=== PATIENT | male | born 1975 | race Caucasian/White ===

== ENCOUNTER 2019-04-07 13:47 | Emergency (ER) | payer SELFPAY ==
[2019-04-07] MEDS ORDERED: Ondansetron 4 MG/2 ML SDV IVPUSH ONE (13:54)
[2019-04-07] MEDS ORDERED: Morphine 4 MG/ML Syringe IVPUSH ONE (13:54)
[2019-04-07] MEDS ORDERED: methylPREDNISolone Sodium Succinate 125 MG/2 ML SDV IVPUSH ONE (13:54)
--- NOTE | 2019-04-07 13:54 | EDM.PDOC ---
ED HPI GENERAL MEDICAL PROBLEM - General Chief Complaint: Back Pain or Injury Stated Complaint: BACK PAIN Time Seen by Provider: 04/07/19 13:48 Source of Information: Reports: Patient History Limitations: Reports: No Limitations - History of Present Illness INITIAL COMMENTS - FREE TEXT/NARRATIVE: HISTORY AND PHYSICAL: History of present illness: Patient is a 43-year-old male who presents to the emergency room by EMS from work with complaints of severe low back pain. He states around noon he had bent over and had sharp sudden onset of pain which has gradually gotten worse. He had been ambulating and bearing weight without any difficulty, deficits, or weakness. He states he called EMS as he is "afraid to move" as it hurts so bad. States pain is localized across the low lumbar region bilaterally (across low back), does not radiate. He denies any injury, trauma or falls. He states he is ambulatory and able to weight-bear although is fearful to move. Denies any urinary or fecal incontinence. Denies any numbness, tingling or saddle paresthesias. Patient denies any fever, chills, headache, change in vision, syncope or near syncope. Denies any chest pain, neck pain, shortness of breath or cough. Denies any abdominal pain, nausea, vomiting, diarrhea, constipation or dysuria. Has not noted any blood in urine or stool. Patient has been eating and drinking appropriately. Review of systems: As per history of present illness and below otherwise all systems reviewed and negative. Past medical history: As per history of present illness and as reviewed below otherwise noncontributory. Surgical history: As per history of present illness and as reviewed below otherwise noncontributory. Social history: See social history for further information Family history: As per history of present illness and as reviewed below otherwise noncontributory. Physical exam: General: Well developed and well nourished 43-year-old male. Alert and oriented. Anxious demeanor, but nontoxic appearing and in no acute distress. HEENT: Atraumatic, normocephalic, pupils equal and reactive bilaterally, negative for conjunctival pallor or scleral icterus, mucous membranes moist, trachea midline. No drooling or trismus noted. No meningeal signs. No hot potato voice noted. Lungs: Clear to auscultation, breath sounds equal bilaterally, chest nontender. Heart: S1S2, regular rate and rhythm without overt murmur Abdomen: Soft, nondistended, nontender. Negative for masses or hepatosplenomegaly. Negative for costovertebral tenderness. Pelvis: Stable nontender. Rectal: Refused regardless of education. C-spine/Back: No pinpoint vertebral tenderness upon palpation of the cervical, thoracic, or upper lumbar spine. He has exaggerated tenderness with palpation of the low lumbar spine with paraspinous muscular tenderness bilaterally as well. No crepitus, step-offs or obvious deformities. Patient able to lift his toes bilaterally and push down with equal strong force. Denies any urinary or fecal incontinence. Denies any numbness, tingling or saddle paresthesia. Skin: Intact, warm, dry. No lesions or rashes noted. Extremities: Atraumatic, moves all distal extremities per self without difficulty or deficits, negative for cords or calf pain. Strong pedal/pretibial pulses bilaterally. Neurovascular unremarkable. Neuro: Awake, alert, oriented. Cranial nerves II through XII unremarkable. Cerebellum unremarkable. Motor and sensory unremarkable throughout. Exam nonfocal. Notes: Lab work is unremarkable, with the exception of slightly elevated LFT's. CT shows a subacute mildly displaced fractures of the bilateral L3 and L4 transverse processes. No abdominal aortic aneurysm or dissection. The mesenteric and renal arterial vasculature is patent. No solid organ injury within the abdomen. No abdominal or pelvic free fluid. Increased number of small nonspecific mesenteric lymph nodes. 1.5 cm left adrenal gland nodule is incompletely characterized. Adrenal CT without and with contrast with washout determination could be performed for further characterization. I spoke with Dr Ann, neurosurgeon at [facility], about this patient. He states this patient is able to be discharged to home and follow-up with primary care provider for continued pain management. If the patient does have moderate to severe pain a back brace may be beneficial. I did inform patient of the diagnostic findings. He feels uncomfortable moving around as he feels this is because "further injury". Will contact [employer] to get a back brace for patient comfort. His information has been forwarded to our clinic for follow-up care. [facility] has been here to fit patient for back brace. He has been up in the room , eating and drinking without difficulty. Medication, follow up and supportive care measures were reviewed and discussed. Voices understanding and is agreeable to plan of care. Denies any further questions or concerns at this time. Diagnostics: CBC, CMP, INR, UA, CTA abd/pelvis, LS spine CT Therapeutics: IV fluids, Zofran, Morphine, fentanyl [facility] - TSLO brace Prescription: Valium Tramadol Impression: Transverse process fracture, L3 and L4 Acute Lumbar Back Pain Elevated transaminases Plan: 1. Please follow up with your primary care provider as we discussed. 2. Take your medications as directed. These medications may cause drowsiness, so do not take while driving. DO not take these medications together. Do not mix with alcohol. 3. Wear the back brace as directed. 4. Return to the ED as needed and as discussed. Definitive disposition and diagnosis as appropriate pending reevaluation and review of above. Lower Back Pain Score (Numeric/FACES): 9 - Related Data Allergies Allergy/AdvReac Type Severity Reaction Status Date / Time No Known Allergies Allergy Verified 04/07/19 13:51 Home Meds: Home Meds . [No Known Home Meds] 04/07/19 [History] ED ROS GENERAL - Review of Systems Review Of Systems: ROS reveals no pertinent complaints other than HPI. ED EXAM,LOWER BACK PAIN/INJURY - Physical Exam Exam: See Below (See dictation) Course - Vital Signs Last Recorded V/S: Last Vital Signs Temp 97.0 F 04/07/19 14:46 Pulse 63 04/07/19 15:03 Resp 16 04/07/19 15:03 BP 97/58 L 04/07/19 15:03 Pulse Ox 95 04/07/19 15:03 - Orders/Labs/Meds Labs: Laboratory Tests 04/07/19 04/07/19 04/07/19 Range/Units 14:00 14:00 14:00 WBC 5.64 (4.0-11.0) K/uL RBC 4.78 (4.50-5.90) M/uL Hgb 15.0 (13.0-17.0) g/dL Hct 44.4 (38.0-50.0) % MCV 92.9 (80.0-98.0) fL MCH 31.4 (27.0-32.0) pg MCHC 33.8 (31.0-37.0) g/dL RDW Std Deviation 43.2 (28.0-62.0) fl RDW Coeff of [place] 13 (11.0-15.0) % Plt Count 205 (150-400) K/uL MPV 10.40 (7.40-12.00) fL Neut % (Auto) 53.0 (48.0-80.0) % Lymph % (Auto) 34.9 (16.0-40.0) % Miller % (Auto) 9.4 (0.0-15.0) % Eos % (Auto) 2.3 (0.0-7.0) % Baso % (Auto) 0.4 (0.0-1.5) % Neut # (Auto) 3.0 (1.4-5.7) K/uL Lymph # (Auto) 2.0 (0.6-2.4) K/uL Miller # (Auto) 0.5 (0.0-0.8) K/uL Eos # (Auto) 0.1 (0.0-0.7) K/uL Baso # (Auto) 0.0 (0.0-0.1) K/uL Nucleated RBC % 0.0 /100WBC Nucleated RBCs # 0 K/uL INR 1.08 Sodium 140 (136-148) mmol/L Potassium 3.8 (3.5-5.1) mmol/L Chloride 103 (98-107) mmol/L Carbon Dioxide 29.2 (21.0-32.0) mmol/L BUN 11 (7.0-18.0) mg/dL Creatinine 0.9 (0.8-1.3) mg/dL Est Cr Clr Drug Dosing 109.27 mL/min Estimated GFR (MDRD) > 60.0 ml/min Glucose 98 (74-106) mg/dL Calcium 8.8 (8.5-10.1) mg/dL Total Bilirubin 0.7 (0.2-1.0) mg/dL AST 55 H (15-37) IU/L ALT 91 H (14-63) IU/L Alkaline Phosphatase 60 (46-116) U/L Total Protein 7.4 (6.4-8.2) g/dL Albumin 4.0 (3.4-5.0) g/dL Globulin 3.4 (2.6-4.0) g/dL Albumin/Globulin Ratio 1.2 (0.9-1.6) Urine Color Urine Appearance Urine pH (5.0-8.0) Ur Specific [place] (1.001-1.035) Urine Protein (NEGATIVE) mg/dL Urine Glucose (UA) (NEGATIVE) mg/dL Urine Ketones (NEGATIVE) mg/dL Urine Occult Blood (NEGATIVE) Urine Nitrite (NEGATIVE) Urine Bilirubin (NEGATIVE) Urine Urobilinogen (<2.0) EU/dL Ur Leukocyte Esterase (NEGATIVE) 04/07/19 Range/Units 15:40 WBC (4.0-11.0) K/uL RBC (4.50-5.90) M/uL Hgb (13.0-17.0) g/dL Hct (38.0-50.0) % MCV (80.0-98.0) fL MCH (27.0-32.0) pg MCHC (31.0-37.0) g/dL RDW Std Deviation (28.0-62.0) fl RDW Coeff of [place] (11.0-15.0) % Plt Count (150-400) K/uL MPV (7.40-12.00) fL Neut % (Auto) (48.0-80.0) % Lymph % (Auto) (16.0-40.0) % Miller % (Auto) (0.0-15.0) % Eos % (Auto) (0.0-7.0) % Baso % (Auto) (0.0-1.5) % Neut # (Auto) (1.4-5.7) K/uL Lymph # (Auto) (0.6-2.4) K/uL Miller # (Auto) (0.0-0.8) K/uL Eos # (Auto) (0.0-0.7) K/uL Baso # (Auto) (0.0-0.1) K/uL Nucleated RBC % /100WBC Nucleated RBCs # K/uL INR Sodium (136-148) mmol/L Potassium (3.5-5.1) mmol/L Chloride (98-107) mmol/L Carbon Dioxide (21.0-32.0) mmol/L BUN (7.0-18.0) mg/dL Creatinine (0.8-1.3) mg/dL Est Cr Clr Drug Dosing mL/min Estimated GFR (MDRD) ml/min Glucose (74-106) mg/dL Calcium (8.5-10.1) mg/dL Total Bilirubin (0.2-1.0) mg/dL AST (15-37) IU/L ALT (14-63) IU/L Alkaline Phosphatase (46-116) U/L Total Protein (6.4-8.2) g/dL Albumin (3.4-5.0) g/dL Globulin (2.6-4.0) g/dL Albumin/Globulin Ratio (0.9-1.6) Urine Color YELLOW Urine Appearance CLEAR Urine pH 7.5 (5.0-8.0) Ur Specific [place] 1.015 (1.001-1.035) Urine Protein NEGATIVE (NEGATIVE) mg/dL Urine Glucose (UA) NEGATIVE (NEGATIVE) mg/dL Urine Ketones NEGATIVE (NEGATIVE) mg/dL Urine Occult Blood NEGATIVE (NEGATIVE) Urine Nitrite NEGATIVE (NEGATIVE) Urine Bilirubin NEGATIVE (NEGATIVE) Urine Urobilinogen 0.2 (<2.0) EU/dL Ur Leukocyte Esterase NEGATIVE (NEGATIVE) Meds: Medications Discontinued Medications Generic Name Dose Route Start Last Admin Trade Name Freq PRN Reason Stop Dose Admin Diazepam 10 mg 04/07/19 17:18 Valium. PO 04/07/19 17:19 ONETIME ONE Fentanyl 50 mcg 04/07/19 14:35 04/07/19 14:44 Sublimaze IVPUSH 04/07/19 14:36 50 mcg STAT ONE Administration Fentanyl Confirm 04/07/19 14:35 04/07/19 14:45 Sublimaze Administered 04/07/19 14:36 Not Given Dose 100 mcg .ROUTE .STK-MED ONE Sodium Chloride 1,000 mls @ 999 mls/hr 04/07/19 15:51 04/07/19 15:54 Normal Saline IV 04/07/19 16:51 999 mls/hr STAT ONE Administration Iopamidol 100 ml 04/07/19 14:36 Isovue Multipack-370 (76%) IVPUSH 04/07/19 14:37 ONETIME STA Methylprednisolone Sodium Succinate 125 mg 04/07/19 13:54 04/07/19 14:07 Solu-Medrol IVPUSH 04/07/19 13:55 125 mg ONETIME ONE Administration Morphine Sulfate 4 mg 04/07/19 13:54 04/07/19 14:06 Morphine IVPUSH 04/07/19 13:55 4 mg ONETIME ONE Administration Ondansetron HCl 4 mg 04/07/19 13:54 04/07/19 14:00 Zofran IVPUSH 04/07/19 13:55 4 mg ONETIME ONE Administration Departure - Departure Time of Disposition: 17:55 Disposition: Home, Self-Care 01 Clinical Impression: Elevated transaminase level Fracture of transverse process of lumbar vertebra Qualifiers: Encounter type: initial encounter Fracture type: closed Qualified Code(s): S32.009A - Unspecified fracture of unspecified lumbar vertebra, initial encounter for closed fracture Acute lumbar back pain Qualifiers: Back pain laterality: bilateral Sciatica presence: without sciatica Qualified Code(s): M54.5 - Low back pain - Discharge Information Instructions: Transverse Process Fracture Forms: ED Department Discharge Additional Instructions: The following information is given to patients seen in the emergency department who are being discharged to home. This information is to outline your options for follow-up care. We provide all patients seen in our emergency department with a follow-up referral. The need for follow-up, as well as the timing and circumstances, are variable depending upon the specifics of your emergency department visit. If you don't have a primary care physician on staff, we will provide you with a referral. We always advise you to contact your personal physician following an emergency department visit to inform them of the circumstance of the visit and for follow-up with them and/or the need for any referrals to a consulting specialist. The emergency department will also refer you to a specialist when appropriate. This referral assures that you have the opportunity for follow-up care with a specialist. All of these measure are taken in an effort to provide you with optimal care, which includes your follow-up. Under all circumstances we always encourage you to contact your private physician who remains a resource for coordinating your care. When calling for follow-up care, please make the office aware that this follow-up is from your recent emergency room visit. If for any reason you are refused follow-up, please contact the [facility] Emergency Department at and asked to speak to the emergency department charge nurse. [facility] [address] [place] [address] [facility] [address] [place] [address] 1. Please follow up with your primary care provider as we discussed. 2. Take your medications as directed. These medications may cause drowsiness, so do not take while driving. DO not take these medications together. Do not mix with alcohol. 3. Wear the back brace as directed. 4. Return to the ED as needed and as discussed.
[2019-04-07 14:28] LABS: BLOOD UREA NITROGEN,BUN 11 mg/dL (7.0-18.0); CARBON DIOXIDE,CO2 29.2 mmol/L (21.0-32.0); CHLORIDE,CL 103 mmol/L (98-107); GLUCOSE RANDOM 98 mg/dL (74-106); POTASSIUM,K 3.8 mmol/L (3.5-5.1); SODIUM,NA 140 mmol/L (136-148)
[2019-04-07] MEDS ORDERED: fentaNYL 100 MCG/2 ML SDV IVPUSH ONE (14:35)
[2019-04-07] MEDS ORDERED: fentaNYL 100 MCG/2 ML SDV ONE (14:35)
[2019-04-07] MEDS ORDERED: Iopamidol 755 MG/ML 200 ML Multipack Bottle IVPUSH STA (14:36)
--- NOTE | 2019-04-07 15:14 | CT ---
HISTORY: Severe back pain. TECHNIQUE: Intravenous contrast enhanced CT of the abdomen and pelvis. 100 mL of Isovue-370 intravenous contrast administered. Imaging performed in the arterial phase with CT angiography technique. COMPARISON: No prior. FINDINGS: There is no abdominal aortic aneurysm or dissection. The celiac axis and SMA are patent. The renal arteries are patent. The inferior mesenteric artery is patent. Common, external and internal iliac arteries are patent bilaterally. - No focal liver parenchymal abnormality. No definite biliary ductal dilatation. Gallbladder does not appear overly distended. The spleen size is within normal limits. There are a few calcified splenic granulomata. 1.5 cm left adrenal gland nodule demonstrates a density of 14 Hounsfield units. The right adrenal gland is normal. No focal pancreatic abnormality or acute peripancreatic inflammatory change. Symmetric nephrograms. There is no hydronephrosis. There are a few sub cm low-density renal lesions which are too small to characterize though could represent tiny cysts. Urinary bladder does not appear overly distended. - No small bowel obstruction. No appendicitis. No diverticulitis. No fluid collection or free air. Increased number of small nonspecific mesenteric lymph nodes. - There are subacute mildly displaced fractures of the bilateral transverse processes at the L3 and L4 levels. No vertebral body height loss. No acute pelvic fracture. - Mild subpleural atelectasis within the dependent portions of both lungs. IMPRESSION: 1. Subacute mildly displaced fractures of the bilateral L3 and L4 transverse processes. 2. No abdominal aortic aneurysm or dissection. The mesenteric and renal arterial vasculature is patent. 3. No solid organ injury within the abdomen. No abdominal or pelvic free fluid. 4. Increased number of small nonspecific mesenteric lymph nodes. 5. 1.5 cm left adrenal gland nodule is incompletely characterized. Adrenal CT without and with contrast with washout determination could be performed for further characterization. Dictated by Juan Miguel Manzanares MD @ 04/07/2019 3:12:49 PM Please note that all CT scans at this facility use dose modulation, iterative reconstruction, and/or weight-based dosing when appropriate to reduce radiation dose to as low as reasonably achievable. Dictated by: Juan Miguel Manzanares MD @ 04/07/2019 15:12:57 (Electronically Signed)
--- NOTE | 2019-04-07 15:35 | CT ---
INDICATION: Severe low back pain. COMPARISON: None. TECHNIQUE: CT lumbar spine. IV contrast is present. FINDINGS: Normal alignment no vertebral body fractures or vertebral body loss of height. No spondylolisthesis. The fractures of the bilateral transverse processes of L3 and L4. The callus formation surrounding the fractures particular at the level of L3 suggest subacute fractures. T12-L1 L1-2 L2-3: No spinal canal or neural foraminal narrowing. L3-4: No spinal canal or neural foraminal narrowing. L4-5: Posterior disc bulge. Flattening of ventral thecal sac. Mild narrowing of spinal canal. Mild narrowing of the bilateral neural foramina. Mild bilateral facet arthropathy. L5-S1: No narrowing of spinal canal. No impingement of the traversing S1 nerve roots. No neural foraminal narrowing. Normal visualized SI joints. Normal paraspinal soft tissues. Visualized lower lungs are clear. IMPRESSION: 1. Normal alignment. No vertebral body fractures. No spondylolisthesis. 2. Bilateral transverse process fractures of L3 and L4 appears subacute. Callus formation about the fractures particularly at the level of L3 3. At L4-5, posterior disc bulge and mild narrowing of the spinal canal and bilateral neural foramina 4. No spinal canal or neural foraminal narrowing at the remaining levels Please note that all CT scans at this facility use dose modulation, iterative reconstruction, and/or weight-based dosing when appropriate to reduce radiation dose to as low as reasonably achievable. Dictated by Kiel Bennett MD @ Apr 08 2019 5:03PM Signed by Dr. Kiel Bennett @ Apr 08 2019 5:07PM
[2019-04-07] MEDS ORDERED: Sodium Chloride 0.9% 1,000 ML IV ONE (15:51)
[2019-04-07] MEDS ORDERED: Diazepam 5 MG Tab PO ONE (17:18)
== END 2019-04-07 18:16 | disposition home or self-care (01) ==
LOC: MW.ED 13:47
DX: S32.039A Unspecified fracture of third lumbar vertebra, initial encounter for closed fracture (principal); S32.049A Unspecified fracture of fourth lumbar vertebra, initial encounter for closed fracture; R74.0 Nonspecific elevation of levels of transaminase and lactic acid dehydrogenase [LDH]; X50.1XXA Overexertion from prolonged static or awkward postures, initial encounter
CPT/HCPCS: 36415; 72131; 74174; 80053; 81003; 85025; 85610; 96361; 96374; 96375; 99284; A9270; J2270; J2405; J2930; J3010; J7040

== ENCOUNTER 2020-12-20 18:00 | Emergency (ER) | payer OTHER ==
[2020-12-20] MEDS ORDERED: Hydrocortisone 2.5% Crm 30 GM Tube TOP ONE (18:55)
--- NOTE | 2020-12-20 18:58 | EDM.PDOC ---
ED HPI GENERAL MEDICAL PROBLEM - General Chief Complaint: Skin Complaint Stated Complaint: RASH Time Seen by Provider: 12/20/20 18:27 Source of Information: Reports: Patient History Limitations: Reports: No Limitations - History of Present Illness INITIAL COMMENTS - FREE TEXT/NARRATIVE: HISTORY AND PHYSICAL: History of present illness: The patient is a 45-year-old male presents to the emergency room with complaints of a rash on his genitalia for over a month. The patient states that he saw his primary care who diagnosed him with tinea cruris and was told to apply Lotrimin cream. The patient states that if he does not apply the cream the fundus comes back. The patient would like something else done. Patient denies any fever, chills, headache, change in vision, syncope or near syncope. Denies any chest pain, back pain, shortness of breath or cough. Denies any abdominal pain, nausea, vomiting, diarrhea, constipation or dysuria. Has not noted any blood in urine or stool. Patient has been eating and drinking appropriately. Review of systems: As per history of present illness and below otherwise all systems reviewed and negative. Past medical history: As per history of present illness and as reviewed below otherwise noncontributory. Surgical history: As per history of present illness and as reviewed below otherwise noncontributory. Social history: See social history for further information Family history: As per history of present illness and as reviewed below otherwise noncontributory. Physical exam: General: Well developed and well nourished. Alert and orientated x 3. Nontoxic in appearance and in no acute distress. Vital signs are stable and have been reviewed by me. Nursing notes were reviewed. HEENT: Atraumatic, normocephalic, pupils equal and reactive bilaterally, negative for conjunctival pallor or scleral icterus, mucous membranes moist, TMs normal bilaterally, throat clear, neck supple, nontender, trachea midline. No drooling or trismus noted. No meningeal signs. No hot potato voice noted. Lungs: Clear to auscultation bilaterally. No wheezes, rales, or rhonchi. Chest nontender. Normal work of breathing, no accessory muscles used. Heart: S1S2, regular rate and rhythm without overt murmur, gallops, or rubs. No JVD. No peripheral edema Abdomen: Soft, nondistended, nontender. Normoactive bowel sounds. Negative for masses or costovertebral tenderness. Skin: Intact, warm, dry. Dry scaly patchy areas on shaft of penis and scrotum. Hematologic: No petechiae or purpra. Mucosa appropriate color and normal nail bed color and refill. Extremities: Atraumatic, moves all extremities per self without difficulty or deficits, negative for cords or calf pain. Neurovascular unremarkable. Neuro: Awake, alert, oriented. Cranial nerves II through XII unremarkable. Cerebellum unremarkable. Motor and sensory unremarkable throughout. Exam nonfocal. Psychiatric: Mood and affect are appropriate. Normal thought process. Answering questions appropriately. Notes: *This patient was seen and evaluated during the 2019 SARS-CoV-2 novel coronavirus pandemic period. Community viral transmission is ongoing at time of this encounter and the emergency department is operating under pandemic response procedures. As stated above the patient is concerned about her needs dry patchy areas on his shaft of his penis after using Lotrimin for a month. I have treated the areas with hydrocortisone 2.5% cream and given the patient a card to follow up with dermatology. The patient is agreeable to the discharge plan. I have talked with the patient about today's findings, in addition to providing specific details for plan of care. Reassessment at the time of disposition demonstrates that the patient is in no acute distress. The patient is stable for discharge, counseling was provided and we discussed in great detail signs and symptoms that would prompt them to return to the Emergency Department. Medication, follow up and supportive care measures were reviewed and discussed. Voices understanding and is agreeable to plan of care. Denies any further questions or concerns at this time. Therapeutics:Hydrocortisone cream 2.5% to apply daily Prescription:Hydrocortisone cream 2.5% to apply daily Impression: genital rash Plan: 1. You were evaluated today on an emergent basis. Your complaints of genital rash was evaluated and I am not sure today which you have is "jock itch" as the Lotrimin you have been applying for a month did not take care of it. Your area genital looks extremely dry and could be eczema. I will give you hydrocortisone cream 2.5% to apply daily and a card for you to follow-up with a sail repair person who is a corrections specialist. Advise you to follow-up with him. 2. You can alternate Tylenol and ibuprofen as needed for pain and fever management. 3. We encourage you to follow up with your primary care provider and/or recommended specialist in the next few days for re-evaluation and further care/management. 4. If your symptoms should worsen, new symptoms develop or any of the signs and symptoms we discussed should arise please return to the emergency room or call 911 (if needed). Definitive disposition and diagnosis as appropriate pending reevaluation and review of above. Genital Pain Score (Numeric/FACES): 7 - Related Data Allergies Allergy/AdvReac Type Severity Reaction Status Date / Time No Known Allergies Allergy Verified 12/20/20 18:16 Home Meds: Home Meds Hydrocortisone [Hydrocortisone 2.5% Crm] 30 gm .XX DAILY 20 Days #1 tube 12/20/20 [Rx] Past Medical History - Past Health History Medical/Surgical History: Denies Medical/Surgical History - Past Surgical History HEENT Surgical History: Reports: Tonsillectomy Social & Family History - Family History Family Medical History: No Pertinent Family History - Tobacco Use Tobacco Use Status *Q: Never Tobacco User - Caffeine Use Caffeine Use: Reports: None - Recreational Drug Use Recreational Drug Use: No ED ROS GENERAL - Review of Systems Review Of Systems: Comprehensive ROS is negative, except as noted in HPI. ED EXAM, SKIN/RASH Exam: See Below (See dictation) Course - Vital Signs Last Recorded V/S: Last Vital Signs Temp 96.9 F 12/20/20 18:16 Pulse 52 L 12/20/20 18:16 Resp 16 12/20/20 18:16 BP 111/62 12/20/20 18:16 Pulse Ox 99 12/20/20 18:16 - Orders/Labs/Meds Meds: Medications Discontinued Medications Generic Name Dose Route Start Last Admin Trade Name Kelly PRN Reason Stop Dose Admin Hydrocortisone 1 gm 12/20/20 18:55 Hydrocortisone 2.5% Crm 30 Gm Tube TOP 12/20/20 18:56 ONETIME ONE Departure - Departure Time of Disposition: 18:57 Disposition: Home, Self-Care 01 Condition: Good Clinical Impression: Rash of genital area - Discharge Information *PRESCRIPTION DRUG MONITORING PROGRAM REVIEWED*: Not Applicable *COPY OF PRESCRIPTION DRUG MONITORING REPORT IN PATIENT DELIA: Not Applicable Prescriptions: Hydrocortisone [Hydrocortisone 2.5% Crm] 30 gm .XX DAILY 20 Days #1 tube Instructions: Rash, Adult, [id number] Referrals: PCP,None [Primary Care Provider] - Forms: ED Department Discharge Additional Instructions: The following information is given to patients seen in the emergency department who are being discharged to home. This information is to outline your options for follow-up care. We provide all patients seen in our emergency department with a follow-up referral. The need for follow-up, as well as the timing and circumstances, are variable depending upon the specifics of your emergency department visit. If you don't have a primary care physician on staff, we will provide you with a referral. We always advise you to contact your personal physician following an emergency department visit to inform them of the circumstance of the visit and for follow-up with them and/or the need for any referrals to a consulting specialist. The emergency department will also refer you to a specialist when appropriate. This referral assures that you have the opportunity for follow-up care with a specialist. All of these measure are taken in an effort to provide you with optimal care, which includes your follow-up. Under all circumstances we always encourage you to contact your private physician who remains a resource for coordinating your care. When calling for follow-up care, please make the office aware that this follow-up is from your recent emergency room visit. If for any reason you are refused follow-up, please contact the [facility] Emergency Department at and asked to speak to the emergency department charge nurse. [facility] - [facility] [address] [place] [id number] [place] [address] Plan: 1. You were evaluated today on an emergent basis. Your complaints of genital rash was evaluated and I am not sure today which you have is "jock itch" as the Lotrimin you have been applying for a month did not take care of it. Your area genital looks extremely dry and could be eczema. I will give you hydrocortisone cream 2.5% to apply daily and a card for you to follow-up with a sail repair person who is a corrections specialist. Advise you to follow-up with him. 2. You can alternate Tylenol and ibuprofen as needed for pain and fever management. 3. We encourage you to follow up with your primary care provider and/or recommended specialist in the next few days for re-evaluation and further care/management. 4. If your symptoms should worsen, new symptoms develop or any of the signs and symptoms we discussed should arise please return to the emergency room or call 911 (if needed). Sepsis Event Note (ED) - Evaluation Sepsis Screening Result: No Definite Risk - Focused Exam Vital Signs: Vital Signs Temp Pulse Resp BP Pulse Ox 12/20/20 18:16 96.9 F 52 L 16 111/62 99
== END 2020-12-20 19:25 | disposition home or self-care (01) ==
LOC: MW.ED 18:00
DX: R21 Rash and other nonspecific skin eruption (principal)
CPT/HCPCS: 99282; A9270; 99283

== ENCOUNTER 2022-06-09 18:58 | Emergency (ER) | payer OTHER ==
[2022-06-09] MEDS ORDERED: Orphenadrine 60 MG/2 ML Inj IM ONE (21:52)
[2022-06-09] MEDS ORDERED: Ketorolac 60 MG/2 ML SDV IM ONE (21:52)
== END 2022-06-09 23:48 | disposition home or self-care (01) ==
LOC: MW.ED 18:58
DX: M54.50 Low back pain, unspecified (principal); Z98.890 Other specified postprocedural states
CPT/HCPCS: 74176; 81003; 96372; 99284; J1885; J2360